=== PATIENT | male | born 1990 | race Caucasian/White ===

== ENCOUNTER 2017-06-21 11:48 | Emergency (ER) | payer MEDICAID ==
[~2017-06-21] VITALS: Ht 167.6 cm; Wt 74.0 kg
[2017-06-21 12:01] VITALS: BP 121/54
[2017-06-21] MEDS ORDERED: FLUORESCEIN SODIUM 1MG/STRIP OP ONE (12:30)
[2017-06-21] MEDS ORDERED: TETRACAINE 0.5% OPHTH DROPS 4ML OP ONE (12:30)
== END 2017-06-21 15:04 | disposition home or self-care (01) ==
LOC: ER 12:39
DX: S05.90XA Unspecified injury of unspecified eye and orbit, initial encounter (principal); X58.XXXA Exposure to other specified factors, initial encounter; Y93.E8 Activity, other personal hygiene; Y92.89 Other specified places as the place of occurrence of the external cause; Y99.8 Other external cause status
CPT/HCPCS: 99283

== ENCOUNTER 2022-11-28 17:41 | Emergency (ER) | payer MEDICAID ==
[~2022-11-28] VITALS: Ht 162.6 cm; Wt 81.0 kg
[2022-11-28 17:48] VITALS: BP 159/96
== END 2022-11-28 20:02 | disposition left against medical advice (07) ==
LOC: ER 17:41
DX: Z53.21 Procedure and treatment not carried out due to patient leaving prior to being seen by health care provider (principal)
CPT/HCPCS: 99281

== ENCOUNTER 2024-05-26 12:16 | Emergency (ER) | payer MEDICAID ==
[~2024-05-26] VITALS: Ht 160 cm; Wt 82.0 kg
[2024-05-26 12:18] VITALS: BP 121/84; RESP 16; TEMP 98.6; O2SAT 100
[2024-05-26 12:19] VITALS: PULSE 106; O2SAT 100
[2024-05-26] MEDS: BACITRACIN ZINC OINT UDPKT TOP ONE (14:12)
[2024-05-26] MEDS: LIDOCAINE HCL/PF 1% 10 MG/ML 5ML VIAL INFIL ONE (14:12)
== END 2024-05-26 20:05 | disposition home or self-care (01) ==
LOC: ER 12:16
DX: S61.214A Laceration without foreign body of right ring finger without damage to nail, initial encounter (principal); Z91.018 Allergy to other foods; W22.8XXA Striking against or struck by other objects, initial encounter; Y93.89 Activity, other specified; Y92.89 Other specified places as the place of occurrence of the external cause; Y99.8 Other external cause status
CPT/HCPCS: 73130; 99283; J3490; Z7610 ×2